=== PATIENT | male | born 1975 | race Caucasian/White ===

== ENCOUNTER 2018-12-11 14:25 | Emergency (ER) | payer MEDICAID, OTHER, SELFPAY ==
[~2018-12-11] VITALS: Ht 182.9 cm; Wt 75.0 kg
[2018-12-11 14:35] VITALS: BP 123/79
== END 2018-12-11 15:40 | disposition home or self-care (01) ==
LOC: ED 15:33
DX: M77.11 Lateral epicondylitis, right elbow (principal); F17.200 Nicotine dependence, unspecified, uncomplicated
CPT/HCPCS: 73080; 96372; 99283; J1885